=== PATIENT | female | born 1950 | race African-American/Black ===

== ENCOUNTER → 2017-05-30 | Outpatient (CLI) | payer OTHER ==
[~2017-05-30] MED LIST: ACTOS 30 MG TAB30 MG PO; ADVAIR HFA115 MCG/21 INH; AMARYL1 MG PO; ASPIR 8181 MG PO; AVANDAMET 4 MG PO; BENICAR HCT 401 EAC1 PO; CARBAMAZEPINE PO; GLUCOPHAGE XR500 MG PO; HYDROCHLOROTHIA25 M1 PO; NEURONTIN300 MG PO; PRAVACHOL40 MG PO; PROAIR HFA8.5 GM; PROVIGIL 200 M200 M1 PO; ZOLOFT50 MG PO; ZONISAMIDE 100100 M1 PO
== END ==
LOC: LABMALL 09:14
DX: I67.82 Cerebral ischemia (principal); G40.909 Epilepsy, unspecified, not intractable, without status epilepticus; R41.3 Other amnesia; R56.9 Unspecified convulsions